=== PATIENT | female | born 2000 | race Caucasian/White ===

== ENCOUNTER 2024-09-07 15:43 | Emergency (ER) | payer OTHER, SELFPAY ==
--- NOTE | ~2024-09-07 | XR_ITS ---
XR hip LT 2V w AP pelvis Ordering provider: Sonja Hemphill III, DO History: . left hip pain x 1 month; no injury . Comparison: None. FINDINGS: BONES: No acute fracture or dislocation. HIP JOINT SPACES: Normal. SACROILIAC JOINT SPACES/LUMBAR SPINE: The sacroiliac joint spaces are normal. Normal visualized lower lumbar spine. PUBIC SYMPHYSIS: Normal. SOFT TISSUES: Normal. IMPRESSION: No acute osseous abnormality pelvis and left hip. Reviewed, dictated and finalized at location A. ERCIAL APPRAISER
[2024-09-07 16:03] VITALS: BP 108/62; PULSE 70; RESP 16; TEMP 36.3; O2SAT 100
--- NOTE | 2024-09-07 20:53 | ED_ITS ---
HPI - Extremity Problem General Chief complaint: Extremity Problem,Nontraumatic Stated complaint: L HIP PAIN Time Seen by Provider: 09/07/24 19:47 History of Present Illness HPI Narrative: Pt presents with pain in left hip for months. Pt says she does a lot of walking at work and to and from work. Pt denies specific injury. Pt says it hurts with movement and laying on it sometimes. Pt denies back pain or numbness or weakness in legs. Pt denies bowel or bladder problems. Related Data Allergies Allergy/AdvReac Type Severity Reaction Status Date / Time No Known Allergies Allergy Mild Verified 09/07/24 19:30 Review of Systems Review of Systems: All systems reviewed & are unremarkable except as noted in HPI and below PMFSH Family History Family History (System 02/21/21 @ 16:10 by Dexter Rodriges) Other Diabetes mellitus Family history of cardiovascular disease Hypertension Social History Social History (System 02/21/21 @ 16:10 by Dexter Rodriges) Second hand tobacco smoke exposure: Yes Exam Const: General: healthy appearing and no acute distress Nutritional Appearance: well nourished and thin Orientation/consciousness: patient oriented x3 Limitations: no limitations HENMT: Head: normal to inspection Neck: Neck: normal visual inspection Resp: Effort & Inspection: normal respiratory effort Auscultation: clear to auscultation bilaterally Cardio: Rate: regular rate Rhythm: regular rhythm GI: GI Palp: Yes Soft to palpation and No Tenderness to palpation present (GI) Auscultation: normal bowel sounds Back/Spine/Pelvis: Back: no CVA tenderness Skin: General skin exam: normal color Rashes: no rashes Wounds: no wounds Neuro: General: patient oriented x3, moves all extremities, no meningeal signs and CN's II-XI intact bilaterally Speech: normal speech Extrem: General: normal to inspection and no clubbing, cyanosis or edema Other: tender left hip with movement of hip no shortening or rotation pain is in hip and groin Psych: Mental Status: mental status grossly normal Affect: normal affect Attitude: cooperative Course Vital Signs Vital signs: Vital Signs Temperature 97.3 F L 09/07/24 16:03 Pulse Rate 70 09/07/24 16:03 Respiratory Rate 16 09/07/24 16:03 Blood Pressure 108/62 09/07/24 16:03 Pulse Oximetry 100 09/07/24 16:03 Temperature 97.3 F L 09/07/24 16:03 Pulse Rate 70 09/07/24 16:03 Respiratory Rate 16 09/07/24 16:03 Blood Pressure 108/62 09/07/24 16:03 Pulse Oximetry 100 09/07/24 16:03 MDM - Extremity (Nontraumatic) MDM Narrative Medical decision making narrative: Pt presents with nontraumatic hip pain for some time off and on. x rays are neg. will try round of prednisone and ortho follow up. Discharge Plan Discharge Clinical Impression: Acute hip pain Patient Disposition: Home, Self-Care Condition: Stable Instructions: Antibiotic Form, Hip Pain (ED) Patient Language: [place] Prescriptions: New prednisone 10 mg tablets,dose pack See Taper PO DAILY 12 Days Qty: 42 0RF Taper: Prednisone Taper from 60 mg;12 days 60 mg DAILY for 2 Days and 0 Hour 50 mg DAILY for 2 Days and 0 Hour 40 mg DAILY for 2 Days and 0 Hour 30 mg DAILY for 2 Days and 0 Hour 20 mg DAILY for 2 Days and 0 Hour 10 mg DAILY for 2 Days and 0 Hour Follow-up/Referrals: PHYSICIAN,SUPPLY ROOM CLERK [Primary Care Provider] - Sanchez Bright MD [Physician] -
--- OUTSIDE RECORDS SUMMARY | 2024-09-07 20:56 | XMS_ITS | Clinical Summary ---
Author Organization [facility] Address [address] [place] [address] Care Team Providers Care Target Man Name Role Phone Lubna Mora MD Primary Care Provider Allergies No known active allergies Medications gentamicin (GARAMYCIN) 0.3 % ophthalmic solution Administer 1 drop into the right eye every 4 (four) hours 5 mL 2 Active Additional Information Patient not taking.Reported on 12/14/2023 benzonatate (TESSALON) 200 mg capsuleIndicatio ns:Acute lower respiratory infection Take 1 capsule (200 mg total) by mouth 3 (three) times a day as needed for cough keep tessalon out of reach of children, especially children under the age of 10, due to possible serious risk such as if ingested by children under the age of 10. 30 capsule 4 Active Active Problems Problem Noted Date Diagnosed Date Syncope 09/05/2022 Social History Tobacco Use Types Packs/Day Years Used Date Smoking Tobacco: Never Assessed Personal Safety Answer Date Recorded Have you ever been in or are you currently in a harmful physical or emotional relationship or is someone making you feel afraid or unsafe? Denies 11/29/2022 Comments Unknown Sex and Gender Information Value Date Recorded Sex Assigned at Not on file Legal Sex Female 7:38 AM CDT Gender Identity Not on file Sexual Orientation Not on file Obstetrics History Last Filed Vital Signs Vital Sign Reading Time Taken Comments Blood Pressure 104/69 12/14/2023 8:03 AM CDT Pulse 61 12/14/2023 8:03 AM CDT Temperature 36.3 C (97.4 F) 12/14/2023 8:03 AM CDT Respiratory Rate 20 12/14/2023 8:03 AM CDT Oxygen Saturation 99% 12/14/2023 8:03 AM CDT Inhaled Oxygen Concentration - - Weight 54 kg (119 lb) 12/14/2023 8:03 AM CDT Height 160 cm (5' 3 ) 12/14/2023 8:03 AM CDT Body Mass Index 21.08 12/14/2023 8:03 AM CDT Plan of Treatment Health Maintenance Due Date Last Done Comments Cervical Cancer Screening 2002 Depression Screening 2002 Hepatitis C Screening 2002 DTaP/Tdap/Td Vaccine (4 - Tdap) 2013 08/05/2003, 03/16/2003, 01/26/2003, Additional history exists Varicella Vaccines (1 of 2 - 13+ 2-dose series) 2015 08/05/2003 HPV Vaccines (1 - 3-dose series) 2017 Meningococcal B Vaccine (1 o f 2 - Standard) 2018 Regular Well Visit/Exam 18-64 2020 Covid-19 Vaccine (3 - 2023-2 5 season) 2024 01/07/2021, 12/17/2020 Influenza Vaccine (#1) 2024 05/14/2021, 2008 Hepatitis B Screening Completed 03/16/2003 , 01/26/2003, 2002, Additional history exists Pneumococcal vaccine <65 Completed 006, 08/05/2003, 2002 Insurance [facility] Care Teams Target Man Relationship Specialty Start Date End Date Lubna Mora MD [address] [facility] [address] [place] [address] PCP - General Family Medicine 12/14/23
--- OUTSIDE RECORDS SUMMARY | 2024-09-07 20:56 | XMS_ITS | Referral Summary ---
Author Organization [facility] Address [address] [place] [address] Care Team Providers Care [employer] Inspector Name Role Phone Lubna Mora MD Primary [...] on file Sexual Orientation Not on file Last Filed Vital Signs Vital Sign Reading [...] 12/14/2023 8:03 AM CDT Plan of Treatment Not on file Insurance Care Teams [employer] Inspector Relationship Specialty Start Date End Date Lubna Mora MD [address] [place] [address] [address] [place] [id number] PCP - General Family Medicine 12/14/23
[2024-09-07] MEDS: IBUPROFEN 400 MG TABLET 800 MG PO (21:12)
== END 2024-09-07 21:45 | disposition home or self-care (01) ==
PROVIDERS: Emergency Provider Emergency Medicine
DX: M25.552 Pain in left hip (principal); Z77.22 Contact with and (suspected) exposure to environmental tobacco smoke (acute) (chronic)
CPT/HCPCS: 73502; 99283; A9270